=== PATIENT | female | born 1940 | race Caucasian/White ===

== ENCOUNTER 2020-04-23 17:05 | Emergency (ER) | payer MEDICARE, OTHER ==
[2020-04-23 18:59] LABS: HEMOGLOBIN 12.2 gm/dl (12.3-15.3); RED BLOOD COUNT 4.14 M/UL (4.00-5.10); WHITE BLOOD COUNT 8.3 K/UL (4.5-11.0)
[2020-04-23] MEDS ORDERED: ZOFRAN ODT 4 MG4 MG PO (21:25)
== END 2020-04-23 21:50 | disposition home or self-care (01) ==
LOC: ER1 17:05
PROVIDERS: Physician Assistant
DX: I71.4 Abdominal aortic aneurysm, without rupture (principal); I11.9 Hypertensive heart disease without heart failure; E78.5 Hyperlipidemia, unspecified; I25.2 Old myocardial infarction; Z95.1 Presence of aortocoronary bypass graft; Z90.710 Acquired absence of both cervix and uterus; Z88.5 Allergy status to narcotic agent
CPT/HCPCS: 80053; 81001; 83605; 83690; 85025; 87086; 96374; 99284; J2405